=== PATIENT | female | born 1980 | race Caucasian/White ===

== ENCOUNTER 2024-04-01 09:10 | Outpatient (CLI) | payer OTHER, SELFPAY ==
--- NOTE | ~2024-04-01 | MM_ITS ---
EXAMINATION: MM screening markus BI w dena HISTORY: Screening TECHNIQUE: Craniocaudal and mediolateral oblique 3-D tomosynthesis images were obtained and synthetic 2-D images were generated. CAD analysis was submitted and interpreted. COMPARISON: No prior mammogram is available for comparison at this institution. BREAST PARENCHYMAL COMPOSITION: Not dense: There are scattered areas of fibroglandular density. FINDINGS: There is no evidence of suspicious mass, calcification, or architectural distortion to sugg est malignancy in either breast. There has been no suspicious interval change. IMPRESSION: 1. No mammographic evidence of malignancy. 2. Recommend routine screening mammography in one year. BI-RADS Category 1: Negative Reviewed, dictated and finalized at location B.
== END 2024-04-01 09:11 | disposition home or self-care (01) ==
LOC: ANHIMG 09:11
PROVIDERS: PCP Family Medicine; Visit Provider Obstetrics & Gynecology
DX: Z12.31 Encounter for screening mammogram for malignant neoplasm of breast (principal)
CPT/HCPCS: 77063; 77067

== ENCOUNTER 2025-04-04 11:40 | Outpatient (CLI) | payer OTHER, SELFPAY ==
--- NOTE | ~2025-04-04 | XR_ITS ---
EXAMINATION: XR chest 2V, 04/04/2025 11:45 CDT HISTORY: E55.9 - Vitamin D deficiency, unspecified COMPARISON: No comparisons available. Technique: 2 views obtained. Findings: The lungs are clear, no effusion. No pneumothorax. Heart is normal size. Mediastinal and hilar contours are within normal limits. Bony thorax no acute abnormality. Impression: No acute cardiopulmonary abnormality. Reviewed, dictated and finalized at location P. Impression: No acute cardiopulmonary abnormality.
== END 2025-04-04 11:41 | disposition home or self-care (01) ==
LOC: MICIMG 11:42
PROVIDERS: PCP Family Medicine; Visit Provider Nurse Practitioner Family
DX: E55.9 Vitamin D deficiency, unspecified (principal); R05.9 Cough, unspecified; R10.9 Unspecified abdominal pain; R07.89 Other chest pain
CPT/HCPCS: 71046

== ENCOUNTER 2025-04-27 07:16 | Outpatient (CLI) | payer OTHER, SELFPAY ==
--- NOTE | ~2025-04-27 | US_ITS ---
EXAMINATION: US abdomen complete, 04/27/2025 7:24 CMA OR LPN HISTORY: E55.9 - Vitamin D deficiency, unspecified COMPARISON: None Technique: Cruz-scale and color Doppler images were obtained. Findings: LIVER: Mild increased echogenicity of the liver. . GALLBLADDER/BILIARY: Unremarkable.No cholelithiais, wall thickening or pericholecystic fluid. No biliary dilatation. CBD 3 mm. Bosler sign negative. PANCREAS: Unremarkable. SPLEEN: Unremarkable, no splenomegaly. KIDNEYS: Right Kidney: Right kidney 13.3 x 4.8 x 4.1 cm, normal. Left Kidney: Left kidney 12.7 x 5.6 x 5 cm, normal. AORTA: Normal caliber aorta. IVC: Unremarkable. FREE FLUID: None. Impression: 1. Mild hepatic steatosis Reviewed, dictated and finalized at location P. OR LPN Impression: 1. Mild hepatic steatosis
--- OUTSIDE RECORDS SUMMARY | 2025-04-27 07:20 | XMS_ITS | Clinical Summary ---
Author Organization [facility] Care Team Providers Care Box Spring Maker Name Role Phone Provider, None Primary Care Provider Unavailabl e Allergies No known active allergies Medications No known medications Active Problems Problem Noted Date Diagnosed Date Parosmia Social History Tobacco Use Types Packs/Day Years Used Date Smoking Tobacco: Never Assessed Comments Unknown Sex and Gender Information Value Date Recorded Sex Assigned at Not on file Legal Sex Female 8:07 PM CDT Gender Identity Not on file Sexual Orientation Not on file Plan of Treatment Health Maintenance Due Date Last Done Comments Hepatitis C Virus (HCV) Screening 1978 TdaP Immunization 1978 Hepatitis B Immunization (1 of 3 - 19+ 3-dose series) 1997 Pap Smear 10/04/1999 Cervical Cancer Screening (CCS) 2008 HPV/Cotest 2008 Cologuard 10/04/2023 Colonoscopy 10/04/2023 Colorectal Cancer Screening 10/04/2023 Immunochemical Fecal Occult Blood 10/04/2023 Influenza Immunization (#1) 2025 SARS-COV-2 Immunization ( season) 2025 Respiratory Syncytial Virus (RSV) Immunization (Adult) (1 - 1-dose 75+ series) 2053 Human Papillomavirus (HPV) Immunization Aged Out No longer eligible b ased on patient's age to complete this topic Meningococcal Immunization (ACWY) Aged Out No longer eligible based on patient's age to complete this topic Pneumococcal Immunization Combined Aged Out No longer eligible based on patient's age to complete this topic Rotavirus Immunization Aged Out No lo nger eligible based on patient's age to complete this topic Care Teams Box Spring Maker Relationship Specialty Start Date End Date Provider, Rylee BURDEN PCP - General 12/06/20
== END 2025-04-27 07:17 | disposition home or self-care (01) ==
PROVIDERS: PCP Family Medicine; Visit Provider Nurse Practitioner Family
DX: K76.0 Fatty (change of) liver, not elsewhere classified (principal); E55.9 Vitamin D deficiency, unspecified; R05.9 Cough, unspecified; R10.9 Unspecified abdominal pain; R07.89 Other chest pain
CPT/HCPCS: 76700

== ENCOUNTER 2025-04-29 14:40 | Outpatient (CLI) | payer OTHER, SELFPAY ==
--- NOTE | ~2025-04-29 | MM_ITS ---
EXAMINATION: MM screening markus BI w dena HISTORY: Screening TECHNIQUE: Craniocaudal and mediolateral oblique 3-D tomosynthesis images were obtained and synthetic 2-D images were generated. CAD analysis was submitted and interpreted. COMPARISON: 04/01/2024 BREAST PARENCHYMAL COMPOSITION: Not dense: There are scattered areas of fibroglandular density. FINDINGS: There is no evidence of suspicious mass, calcification, or architectural distortion to suggest malignancy in either breast. There has been no suspicious interval change. IMPRESSION: 1. No mammographic evidence of malignancy. 2. Recommend routine screening mammography in one year. BI-RADS Category 1: Negative Reviewed, dictated and finalized at location O. PANNER
--- OUTSIDE RECORDS SUMMARY | 2025-04-29 14:46 | XMS_ITS | Encounter Summary ---
Author Organization [facility] Health Address [address] [place] [address] Care Team Providers Care Solar Manufacturer'S Representative Name Role Phone Unavailable Primary Care Provider Unavailabl e Encounter Details Date Type Department Care Team (Late st Contact Info) Description 02/08/2020 Lab Requisition [facility] Derm[facility] Lab [address] [place] [address] Paco Ding MD [address] [place] [address] Social History Tobacco Use Types Packs/Day Years Used Date Smoking Tobacco: Never Assessed Comments Unknown Sex and Gender Information Value Date Recorded Sex Assigned at Not on file 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 Gender Identity Not on file Sexual Orientation Not on file documented as of this encounter Plan of Treatment Not on file documented as of this encounter Procedures Procedure Name Priority Date/Time Associated Diagnosis Comments DERMATOPATHOLOGY Routine 02/07/2020 12:0 0 AM CDT documented in this encounter Results * DERMATOPATHOLOGY (02/07/2020 12:00 AM CDT) Case Report Dermatopathology Report Case: [id number] Authorizing Provider: Paco Ding MD Collected: 02/07/2020 12:00 AM Ordering Location: [facility] D[facility] Lab Received: 02/08/2020 12:45 PM Pathologist: Lou Walls MD Specimen: Skin, left side abd 0 2:04 PM CDT DERMATOPATHOLOGY LABORATORY Final Diagnosis Specimen A. SKIN, left side abd: INTRADERMAL MELANOCYTIC NEVUS WITH CONGENITAL FEATURES (D22.9) 0 2:04 PM CDT DERMATOPATHOLOGY LABORATORY at 1404 CDT Clinical History R/O dys nevus. 0 2:04 PM CDT DERMATOPATHOLOGY LABORATORY Gross Description Specimen A: Received is one formalin filled container labeled with the patient's name and designated left side abd. The specimen consists of a shave biopsy measuring [id number], bisected. Jar 0. 0 2:04 PM CDT DERMATOPATHOLOGY LABORATORY Microscopic Description Specimen A. SKIN, left side abd: There are nests of cytologically bland melanocytes within the dermis. Some of these melanocytes are concentrated around blood vessels and adnexal structures. 0 2:04 PM CDT DERMATOPATHOLOGY LABORATORY Disclaimer An external and internal positive and negative controls are appropriate for the histochemical, immunohistochemical and immunofluorescence stain(s) in this case (if any), except where stated explicitly. The performance characteristics of the stain(s) cited in this report were developed and its performance characteristic determined by the Dermatopathology Laboratory at [facility], directed by Dr. Ugo Edward. These tests need not be, and therefore are not, approved by the [place] Food and Drug Administration. The tests are used for clinical purposes. Billing Codes Specimen Charges Stain Charges 83399 1 0 2:04 PM CDT DERMATOPATHOLOGY LABORATORY Embedded Images 0 2:04 PM CDT DERMATOPATHOLOGY LABORATORY Pathology/Cytolog y TISSUE SPECIMEN FROM SKIN / Unknown 02/07/2020 02/08/2020 12:45 PM CDT us Paco Ding MD LAB - PATHOLOGY/CYTOLOGY ORD ERABLES Final Result DERMATOPATHOLOGY LABORATORY [facility] - Department of Dermatology Educational Programming Director [address] [address], [facility] [phone] documented in this encounter Visit Diagnoses Not on filedocumented in this encounter
--- OUTSIDE RECORDS SUMMARY | 2025-04-29 14:46 | XMS_ITS | Encounter Summary ---
Author Organization [facility] Health Address [address] [place] [address] Care Team Providers Care Shotblast Operator Name Role Phone Unavailable Primary Care Provider Unavailabl e Encounter Details Date Type Department Care Team (Late st Contact Info) Description 02/21/2022 Lab Requisition [facility] DermPath Lab [address] [place] [address] Paco Ding MD [address] [place] [address] Social History Tobacco Use Types Packs/Day Years Used Date Smoking Tobacco: Never Assessed Comments Unknown Sex and Gender Information Value Date Recorded Sex Assigned at Not on file 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 Gender Identity Not on file Sexual Orientation Not on file documented as of this encounter Plan of Treatment Not on file documented as of this encounter Procedures Procedure Name Priority Date/Time Associated Diagnosis Comments DERMATOPATHOLOGY Routine 02/20/2022 3:33 AM CDT documented in this encounter Results * DERMATOPATHOLOGY (02/20/2022 3:33 AM CDT) Case Report Dermatopathology Report Case: [id number] Authorizing Provider: Paco Ding MD Collected: 02/20/2022 03:33 AM Ordering Location: [facility] DermPath Lab Received: 02/21/2022 02:40 PM Pathologist: Luba Membreno MD Specimen: Skin, below left areola 1:37 PM CDT DERMATOPATHOLOGY LABORATORY Final Diagnosis Specimen A. SKIN, below left areola: LENTIGINOUS MELANOCYTIC NEVUS, COMPOUND TYPE, IRRITATED (D22.5) POST-INFLAMMATORY PIGMENT ALTERATION (L81.9) 2 1:37 PM CDT DERMATOPATHOLOGY LABORATORY at 1337 CDT Clinical History R/O dys nevus 2 1:37 PM CDT DERMATOPATHOLOGY LABORATORY Gross Description Specimen A: Received is one formalin filled container labeled with the patient's name and designated below left areola. The specimen consists of a shave biopsy measuring 7x7x1 mm. Jar 0. 2 1:37 PM CDT DERMATOPATHOLOGY LABORATORY Microscopic Description Specimen A. SKIN, below left areola: This is a compound nevus. There is melanin pigment in the stratum corneum. There is a lentiginous proliferation of melanocytes between nevus nests of cells along the dermal epidermal junction. There is underlying fibroplasia of the papillary dermis. The intradermal component is bland in appearance and matures with depth. (Compound Marlo's Nevus) Sections show abundant melanin within melanophages around the superficial vascular plexus. 2 1:37 PM CDT DERMATOPATHOLOGY LABORATORY Disclaimer An external and internal positive and negative controls are appropriate for the histochemical, immunohistochemical and immunofluorescence stain(s) in this case (if any), except where stated explicitly. The performance characteristics of the stain(s) cited in this report were developed and its performance characteristic determined by the Dermatopathology Laboratory at [facility], directed by Dr. Ugo Edward. These tests need not be, and therefore are not, approved by the [place] Food and Drug Administration. The tests are used for clinical purposes. Billing Codes Specimen Charges Stain Charges 96352 1 2 1:37 PM CDT DERMATOPATHOLOGY LABORATORY Embedded Images 2 1:37 PM CDT DERMATOPATHOLOGY LABORATORY Pathology/Cytolo gy TISSUE SPECIMEN FROM SKIN / Unknown 02/20/2022 3:33 AM CDT 02/21/2022 2:40 PM CDT Paco Ding MD LAB - PATHOLOGY/CYTOLOGY ORD ERABLES Final Result DERMATOPATHOLOGY LABORATORY [facility] - Department of Dermatology [address] [phone] documented in this encounter Visit Diagnoses Not on filedocumented in this encounter
--- OUTSIDE RECORDS SUMMARY | 2025-04-29 14:46 | XMS_ITS | Clinical Summary ---
Author Organization [facility] Care Team Providers Care Trim Machine Operator Name Role Phone Provider, None Primary Care [...] age to complete this topic Care Teams Trim Machine Operator Relationship Specialty Start Date End Date Provider, Rylee BURDEN PCP - General 12/06/20
--- OUTSIDE RECORDS SUMMARY | 2025-04-29 14:46 | XMS_ITS | Clinical Summary ---
Author Organization [facility] [address] [place] [address] Care Team Providers Care Automatic Spooler Operator Name Role Phone Araseli Fermin MD Primary Care Provider [phone] Allergies No known active allergies Medications No known medications Active Problems Problem Noted Date Diagnosed Date Abnormal cervical Papanicolaou smear 02/19/2011 Social History Tobacco Use Types Packs/Day Years Used Date Smoking Tobacco: Former Personal Safety Answer Date Recorded Getting School Help Needed Not on file 09/05 Comments No Sex and Gender Information Value Date Recorded Sex Assigned at Not on file 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 Gender Identity Not on file Sexual Orientation Not on file Last Filed Vital Signs Vital Sign Reading Time Taken Comments Blood Pressure 122/78 01/04/2021 1:05 PM CDT Pulse 84 01/04/2021 1:05 PM CDT Temperature 37.8 C (100 F) 01/04/2021 1:05 PM CDT Respiratory Rate 18 01/04/2021 1:05 PM CDT Oxygen Saturation 97% 01/04/2021 1:05 PM CDT Inhaled Oxygen Concentration - - Weight 88.5 kg (195 lb) 01/04/2021 1:05 PM CDT Height 160 cm (5' 3) 01/04/2021 1:05 PM CDT Body Mass Index 34.54 01/04/2021 1:05 PM CDT Plan of Treatment Not on file Insurance [facility] [employer] Care Teams Automatic Spooler Operator Relationship Specialty Start Date End Date Araseli Fermin MD [facility] [place] [address] PCP - General Family Medicine 01/04/21
--- OUTSIDE RECORDS SUMMARY | 2025-04-29 14:46 | XMS_ITS | Clinical Summary ---
Author Organization [facility] [employer] Address [address] [place] [address] Care Team Providers Care Manager Animal Name Role Phone Unavailable Primary Care Provider Unavailabl e Source Comments [facility], [facility],non-owned Affiliates and Associated Physician Practices is amultiple site organization consisting of ambulatory clinics and hospital sitesin [place], [place], [place] and [place]. This disclosure is being madepursuant to the Care Everywhere program and may not contain all information available regarding this patient. Last updated 18.[facility] [employer] Allergies No known active allergies Medications * Be aware that medications may not be up to date on this document. Alwaysverify current medications with the patient. 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 Gender Identity Not on file Sexual Orientation Not on file Last Filed Vital Signs Vital Sign Reading Time Taken Comments Blood Pressure - - Pulse 88 01/28/2018 9:22 AM CDT Temperature 37 C (98.6 F) 01/28/2018 9:22 AM CDT Respiratory Rate 20 01/28/2018 9:22 AM CDT Oxygen Saturation 98% 01/28/2018 9:22 AM CDT Inhaled Oxygen Concentration - - Weight 78.9 kg (174 lb) 01/28/2018 9:22 AM CDT Height - - Body Mass Index - - Plan of Treatment Health Maintenance Due Date Last Done Comments COLOGUARD (AGES 45-75) - COL ON CA SCREENING 1978 COLON MONITORING 1978 COLONOSCOPY - COLON CA SCREENING 1978 CT COLONOGRAPHY - COLON CA SCREENING 1978 Colorectal Cancer Screening 1978 FIT - COLON CA SCREENING 1978 FLEX SIG - COLON CA SCREENING 1978 LIPID TESTING 1978 MAMMOGRAM 1978 HIV SCREENING 1993 HEPATITIS C SCREENING 09/28/1996 DTAP/TDAP/TD VACCINES (1 - Tdap) 1997 HEPATITIS B VACCINE (1 of 3 - 19+ 3-dose series) 1997 DEPRESSION SCREENING 06/23/2024 COVID-19 VACCINE (1 - 2023-2 5 season) 2025 INFLUENZA VACCINE (#1) 2025 ZOSTER VACCINE (1 of 2) 2028 HIB VACCINE Aged Out No longer eligi ble based on patient's age to complete this topic HPV VACCINE Aged Out No longer eligi ble based on patient's age to complete this topic MENINGOCOCCAL (Group B) VACC INE SHARED DECISION-MAKING Aged Out No longer eligibl e based on patient's age to complete this topic MENINGOCOCCAL GROUPS A/C/Y/W VACCINE Aged Out No longer eligible b ased on patient's age to complete this topic PNEUMOCOCCAL VACCINE Aged Out No long er eligible based on patient's age to complete this topic Insurance ([place]) [id number] [facility]
--- OUTSIDE RECORDS SUMMARY | 2025-04-29 14:47 | XMS_ITS | Data Portability ---
Author Organization [place] - [facility] [employer], Main Office Address [address] [place] [address] Care Team Providers Care Intake Counselor Name Role Phone ARASELI ÁLVAREZ Primary Care Provider Assessment No assessment recorded. Plan of Treatment Reminders Order Date Submit Date Provider Last Modified By Organization Details Last Modified Time Details Appointments None recorded . Lab lipid panel, serum 023 11/01/19 23 [facility], [address] [facility], [place], [address], 3 08:18:27 CMP, serum or plasma 023 11/01/19 23 [facility], [address] [facility], [place], [address], 3 08:18:26 Referral None recorded . Procedures None recorded . Surgeries None recorded . Imaging None recorded . Medication Orders None recorded . Patient TargetsNo targets recorded. Patient InstructionsNo instructions recorded. Reason for Referral None Reported. Results Created Date Observation Date Name Description Value Unit Range Abnormal Flag Note LastModifiedBy Organization Detail LastModifiedTime 11/02/19 23 11/02/2022 COMP. METAB OLIC PANEL (14) glucose 94 mg/dL 70-99 Not Available [facility] ([facility]) [address] [place], [address], 11/02/2022 08:18:26 11/02/19 23 11/02/2022 COMP. METAB OLIC PANEL (14) BUN 9 mg/dL 6-24 Not Available [facility] ([facility]) [address] [place], [address], 11/02/2022 08:18:26 11/02/19 23 11/02/2022 COMP. METAB OLIC PANEL (14) creatinine 0.61 mg/dL 0.57-1 .00 Not Available [facility] ([facility]) [address] [facility], [place], [address], 11/02/2022 08:18:26 11/02/19 23 11/02/2022 COMP. METAB OLIC PANEL (14) eGFR 113 mL/mi n/1.7 3 >59 Not Available [facility] ([facility]) [address] [facility] [place], [address], 11/02/2022 08:18:26 11/02/19 23 11/02/2022 COMP. METAB OLIC PANEL (14) BUN/creatini ne ratio 15 9-23 Not Available [facility] ([facility]) [address] [facility], [place], [address], 11/02/2022 08:18:26 11/02/19 23 11/02/2022 COMP. METAB OLIC PANEL (14) sodium 139 mmol/ L 134-14 4 Not Available [facility] ([facility]) [address] [facility], [place], [address], 11/02/2022 08:18:26 11/02/19 23 11/02/2022 COMP. METAB OLIC PANEL (14) potassium 5.2 mmol/ L 3.5-5. 2 Not Available [facility] ([facility]) [address] [facility], [place], [address], 11/02/2022 08:18:26 11/02/19 23 11/02/2022 COMP. METAB OLIC PANEL (14) chloride 103 mmol/ L 96-106 Not Available [facility] ([facility]) [address] [facility], [place], [address], 11/02/2022 08:18:26 11/02/19 23 11/02/2022 COMP. METAB OLIC PANEL (14) carbon dioxide, total 23 mmol/ L 20-29 Not Available [facility] ([facility]) [address] [place], [address], 11/02/2022 08:18:26 11/02/19 23 11/02/2022 COMP. METAB OLIC PANEL (14) calcium 8.7 mg/dL 8.7-10 .2 Not Available [facility] ([facility]) [address] [place], [address], 11/02/2022 08:18:26 11/02/19 23 11/02/2022 COMP. METAB OLIC PANEL (14) protein, total 6.8 g/dL 6.0-8. 5 Not Available [facility] ([facility]) [address] [place], [address], 11/02/2022 08:18:26 11/02/19 23 11/02/2022 COMP. METAB OLIC PANEL (14) albumin 4.3 g/dL 3.8-4. 8 Not Available [facility] ([facility]) [address] [place], [address], 11/02/2022 08:18:26 11/02/19 23 11/02/2022 COMP. METAB OLIC PANEL (14) globulin, total 2.5 g/dL 1.5-4. 5 Not Available [facility] ([facility]) [address] [place], [address], 11/02/2022 08:18:26 11/02/19 23 11/02/2022 COMP. METAB OLIC PANEL (14) A/G ratio 1.7 1.2-2. 2 Not Available [facility] ([facility]) [address] [place], [address], 11/02/2022 08:18:26 11/02/19 23 11/02/2022 COMP. METAB OLIC PANEL (14) bilirubin, total 0.2 mg/dL 0.0-1. 2 Not Available [facility] ([facility]) [address] [facility] [place] [place], [address], 11/02/2022 08:18:26 11/02/19 23 11/02/2022 COMP. METAB OLIC PANEL (14) alkaline phosphatase 105 IU/L 44-121 Not Available [facility] ([facility]) [address] [facility] [place] [place], [address], 11/02/2022 08:18:26 11/02/19 23 11/02/2022 COMP. METAB OLIC PANEL (14) AST (SGOT) 13 IU/L 0-40 Not Available [facility] ([facility]) [address] [place], [address], 11/02/2022 08:18:26 11/02/19 23 11/02/2022 COMP. METAB OLIC PANEL (14) ALT (SGPT) 10 IU/L 0-32 Not Available [facility] ([facility]) [address] [place], [address], 11/02/2022 08:18:26 11/02/19 23 11/02/2022 LIPID PANEL cholesterol, total 146 mg/dL 100-19 9 Not Available [facility] ([facility]) [address] [place], [address], 11/02/2022 08:18:27 11/02/19 23 11/02/2022 LIPID PANEL triglyceride s 56 mg/dL 0-149 Not Available [facility] ([facility]) [address] [place], [address], 11/02/2022 08:18:27 11/02/19 23 11/02/2022 LIPID PANEL HDL cholesterol 47 mg/dL >39 Not Available [facility] ([facility]) [address] [place], [address], 11/02/2022 08:18:27 11/02/19 23 11/02/2022 LIPID PANEL VLDL cholesterol rosey 12 mg/dL 5-40 Not Available [facility] ([facility]) [address] [place], [address], 11/02/2022 08:18:27 11/02/19 23 11/02/2022 LIPID PANEL LDL chol calc ([facility]) 87 mg/dL 0-99 Not Available [facility] ([facility]) [address] [facility], [place], [address], 11/02/2022 08:18:27 11/02/19 23 11/02/2022 LIPID PANEL comment: METAL [employer] Not Available [facility] ([facility]) [address] [facility], [place], [address], 11/02/2022 08:18:27 02/21/20 22 MAMMO , scree cameron, digit al, bilat eral [facility] [address] [address] Patien t Name: CIARA NORTH Access ion #: [id number] Sex: F : 1980 5 Locati on: RA2 Attend ing Physic elizabeth: ELKHAT IB, RUNDA Orderi ng Physic elizabeth: ELKHAT IB, RUNDA Exam Date: 022 2:56 PM Exam Name: MG DIGITA L MARIEL BILAT SCREEN Admitt ing Diagno sis(es ): RADIOL OGY REPORT - FINAL EXAM: MG DIGITA L MARIEL BILAT SCREEN HISTOR Y: screen ing mammog bisi 41-yea r-old female with no curren t breast compla ints. COMPAR RAMOS: 2020, 2019, 2019 TECHNI QUE: Bilate ral CC and MLO views of the breast s were perfor med. Digita l Mammog kasie images were obtain ed. CAD (compu ter assist ed detect ion) was utiliz ed. FINDIN GS: There are scatte red areas of fibrog landul ar densit y. No masses , asymme tries, suspic ious calcif icatio ns, or rajesh ectura l distor tion are seen. Page 1 of 2 [facility] Justine wong Name: CIARA NORTH Access ion #: [id number] Sex: F : 1980 5 Exam Date: 2:56 PM Exam Name: MG PRICILLA L MARIEL BILAT SCREEN Admitt ing Diagno sis(es ): IMPRES NOEMI: BIRADS 1: Assess ment comple te. Negati ve. Recomm end annual screen ing mammog kasie. Accord ing to the [employer], yearly mammog kacey are recomm ended starti ng at age 40 and contin uing as long as the woman is in good health . Clinic al Breast Exam should be part of the period ic health exam-a bout every 3 years for women in their 20s and 30s and every year for women 40 and over. Breast self-e xam is an option for women in their 20s. Any breast change noted on the breast self-e xam she would be report ed prompt ly to the [facility]. A negati ve mammog kasie report should not discou rage follow -up or biopsy of a clinic ally signif icant findin g and/or abnorm ality. Dense breast tissue may obscur e small neopla sms. This justine wong has been entere d into a mammog kasie remind er system with a target date for her next mammog ibsi. Create d and electr onical ly signed by: Hugo bustos MD Signed Date: 3:28 PM (CT) Dictat ed by: Hugo bustos MD DD: 3:28 PM (CT) DT: 3:28 PM (CT) Page 2 of 2 [id number] [facility] [address] [place], [address], 08/21/2022 17:49:24 02/13/20 23 02/05/2023 home sleep study No observ ation record ed. ZACHARY [facility] [address] [place], [address], 02/24/2023 09:38:42 02/14/20 23 02/05/2023 home sleep study No observ ation record ed. [email or web address] [facility] [address] [place], [address], 02/13/2023 09:35:28 04/01/20 23 MAMMO , scree cameron, digit al, bilat eral [facility] [address] [place], [place] [id number] [phone] Patien t Name: CIARA NORTH ion #: [id number] Sex: F : 1980 2 Dictat ed By: Fadumo Guzman Attend ing Physic elizabeth: ELKHAT IB, RUNDA Orderi ng Physic elizabeth: ELKHAT IB, RUNDA Exam Date: 2022 15:24 PM Exam Name: MG DIGITA L MARIEL BILAT SCREEN Admitt ing Diagno sis(es ): CLINIC AL HISTOR Y: Screen ing COMPAR RAMOS STUDY: 022 TECHNI QUE: Using a full field digita l 2D mammog kasie unit CC and MLO views of both breast s are perfor med. FINDIN GS: BREAST COMPOS ITION: There are scatte red areas of fibrog landul ar densit y in the bilate ral breast s. No suspic ious masses , rajesh ectura l distor tion, asymme tries or suspic ious calcif icatio ns in both breast s. IMPRES NOEMI: No eviden ce of malign joce. Recomm end annual mammog bisi. BIRADS : 1 - Negati ve Electr onical ly Signed by: Fadumo Guzman at 2022 07:43: 10 AM Page 1 [email or web address] [facility] [address] [place], [address], 04/01/2023 15:43:33 04/01/20 23 03/31/2023 MAMMO , zamzame cameron, bilat eral No observ ation record ed. [email or web address] [facility] [address] [place], [address], 04/01/2023 14:46:43 Result Notes Documentation Provider Name and Address Organization Details Recorded Time Mammo, Screening, Digital, Bilateral : [facility] [address] [place] [address] Patient Name: CIARA DOWNS Sex: F : 1980 Location: [facility] Attending Physician: ARASELI ÁLVAREZ Ordering Physician: ARASELI ÁLVAREZ Exam Date: 02/20/2022 2:56 PM Exam Name: MG DIGITAL MARIEL BILAT SCREEN Admitting Diagnosis(es): RADIOLOGY REPORT - FINAL EXAM: MG DIGITAL MARIEL BILAT SCREEN HISTORY: screening mammogram 41-year-old female with no current breast complaints. COMPARISON: 12/19/2020, 12/28/2019, 12/16/2019 TECHNIQUE: Bilateral CC and MLO views of the breasts were performed. Digital Mammography images were obtained. CAD (computer assisted detection) was utilized. FINDINGS: There are scattered areas of fibroglandular density. No masses, asymmetries, suspicious calcifications, or architectural distortion are seen. Page 1 of 2 [facility] Patient Name: CIARA DOWNS Sex: F : 1980 Exam Date: 02/20/2022 2:56 PM Exam Name: MG DIGITAL MARIEL BILAT SCREEN Admitting Diagnosis(es): IMPRESSION: BIRADS 1: Assessment complete. Negative. Recommend annual screening mammography. According to the [employer], yearly mammograms are recommended starting at age 40 and continuing as long as the woman is in good health. Clinical Breast Exam should be part of the periodic health exam-about every 3 years for women in their 20s and 30s and every year for women 40 and over. Breast self-exam is an option for women in their 20s. Any breast change noted on the breast self-exam she would be reported promptly to the patient's health care provider. A negative mammography report should not discourage follow-up or biopsy of a clinically significant finding and/or abnormality. Dense breast tissue may obscure small neoplasms. This patient has been entered into a mammography reminder system with a target date for her next mammogram. Created and electronically signed by: Hugo Nelson MD Signed Date: 02/20/2022 3:28 PM (CT) Dictated by: Hugo Nelson MD (CT) (CT) Page 2 of 2 Not Available [facility] 08/21/2022 17:49:24 Mammo, Screening, Digital, Bilateral : [address] [address] Patient Name: CIARA DOWNS Sex: F : 1980 Dictated By: Fadumo Guzman Attending Physician: ARASELI ÁLVAREZ Ordering Physician: ARASELI ÁLVAREZ Exam Date: 03/31/2023 15:24 PM Exam Name: MG DIGITAL MARIEL BILAT SCREEN Admitting Diagnosis(es): CLINICAL HISTORY: Screening COMPARISON STUDY: 02/20/2022 TECHNIQUE: Using a full field digital 2D mammography unit CC and MLO views of both breasts are performed. FINDINGS: BREAST COMPOSITION: There are scattered areas of fibroglandular density in the bilateral breasts. No suspicious masses, architectural distortion, asymmetries or suspicious calcifications in both breasts. IMPRESSION: No evidence of malignancy. Recommend annual mammogram. BIRADS: 1 - Negative Page 1 LORI Carmona, [place] - [place] [employer] [facility] 04/01/2023 15:43:33 Problems Name Problem SNOMED Code Status Onset Date Resolution Date Notes Provider Name and Address Organization Details Recorded Time Actinic keratosis Active Not Available [facility] 3 05:43:17 Melanocytic nevus 651573311 Active Not Available [facility] 3 05:43:17 Obesity 279358592 Active Not Available [facility] 3 05:43:17 Obstructive sleep apnea syndrome 64475984 Active 2022 Not Available [facility] 3 05:43:17 Sleep apnea 39126317 Active 2022 Not Available [facility] 3 05:43:17 Notes:Araseli Fermin MD Medical History: Actinic keratosis Melanocytic nevus Obesity with mod OSAHS, AHI = 20, 02/05/23 Problem Notes None recorded. Medical Equipment None Reported. Allergies No known drug allergies Medications Name Sig Start Date Stop Date Status Note LastModified by Organization Details LastModified Time metronidazole 0.75 % (37.5 mg/5 gram) vaginal gel 09/24 completed Not Available Not Available Not Available prednisone 20 mg tablet 07/14 completed Not Available Not Available Not Available clonazepam 0.5 mg tablet Take 1 tablet twice a day by oral route as needed for 30 days. active PRN Not Available Not Available No t Available mupirocin 2 % topical ointment 07/14 completed Not Available Not Available Not Available Vitals Date Recorded Body mass index (BMI) Body height Oxygen saturation Oxygen saturation in Arterial blood by Pulse oximetry Heart rate Body temperature Body weight Systolic And Diastolic Provider Name and Address Organization Details Last Updated DateTime 2 35.6 kg/m2 160.02 cm 98 % 98 % 90 /min 96.8 [degF] 55442.0 7 g 118/76 mm[Hg] Not Available [facility] 3 17:46:34 Date Recorded Body weight Body mass index (BMI) Body height Body temperature Heart rate Oxygen saturation Oxygen saturation in Arterial blood by Pulse oximetry Systolic And Diastolic Provider Name and Address Organization Details Last Updated DateTime 3 50125.5 8 g 37.6 kg/m2 160.02 cm 98.2 [degF] 94 /min 98 % 98 % 122/74 mm[Hg] CIERA Rubio [place] [employer] [facility] 3 16:39:23 Date Recorded Body height Body mass index (BMI) Body weight Heart rate Oxygen saturation Oxygen saturation in Arterial blood by Pulse oximetry Systolic And Diastolic Provider Name and Address Organization Details Last Updated DateTime 3 160.02 cm 36.7 kg/m2 82879.6 2 g 77 /min 98 % 98 % 108/52 mm[Hg] Mi Blum [facility] [employer] [facility] 3 12:44:19 Date Recorded Body height Body mass index (BMI) Body weight Heart rate Oxygen saturation Oxygen saturation in Arterial blood by Pulse oximetry Systolic And Diastolic Provider Name and Address Organization Details Last Updated DateTime 3 160.02 cm 36.7 kg/m2 09196.6 2 g 90 /min 98 % 98 % 120/70 mm[Hg] Sheri Guaman MA [facility] [employer] [facility] 3 16:19:47 Social History None recorded. Functional Status None recorded. Mental Status None recorded. Family History Nothing Reported. Medical History No medical history recorded. Gynecological HistoryNo gynecological history recorded. Obstetrics History GPAL:G 0 P 0 0 0 0 Immunizations Vaccine Type Date Status Note Provider Nam e and Address Organization Details Recorded Time Tdap 12/16/2019 completed Not Available [facility] 04/02/2023 05:43:17 Past Encounters Encounter ID Performer Location Encounter Start Date Encounter Closed Date Diagnosis/Indication Diagnosis SNOMED-CT Code Diagnosis ICD10 Code Diagnosis IMO Codes Diagnosis Note [id number] Araseli Fermin MD [facility] era [facility] [place] [address] 08/07/2021 00:00:00 08/07/2021 22:52:32 [id number] Araseli Fermin MD [facility] era [facility] [place] [address] 10/31/2022 16:24:42 10/31/2022 17:20:21 Adult health examination 937296451 Z00.00 Hyperlipid emia screening 769773272 Z13.427 [id number] Jazmyn Rebolledo [facility] [place] [address] [place] [address] 03/17/2023 12:37:49 03/17/2023 14:15:09 Obstructive sleep apnea syndrome 81105574 G47.33 Home sleep study 01/2023 with AHI 20.Discuss ed treatment optionsShe agrees to PAP therapyOrd ered todayOSA is well correctedE ncouraged 100% compliance with all sleepFollo w with PCM for labsAdvise d good sleep habits and patterns:- Set a goal for at least 7 to 8 hours of sleep time per day.-Use the bed mainly for sleep and to go to bed only when tired. If unable to fall asleep after 30 minutes, patient should get out of bed but should not engage in any activity that requires sustained mental alertness. -Maintain a regular bedtime and wake-up time even on weekends or days off of work.-Avoi d excessive naps during the daytime. If a nap is necessary, limit it to no more than 30 minutes.-M inimize environmen sawyer noise, bright lights, and extremes in bedroom temperatur e.-Avoid alcohol, caffeinate d beverages, and nicotine products for at least 6 hours prior to bedtime.-A void strenuous exercise and large meals for at least 4 hours prior to bedtime.RT C for compliance visit as required by insurance [id number] Jazmyn Rebolledo, 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 If unable to fall asleep after 30 minutes, patient should get out of bed but should not engage in any activity that requires sustained mental alertness. -Maintain a regular bedtime and wake-up time even on weekends or days off of work.-Avoi d excessive naps during the daytime. If a nap is necessary, limit it to no more than 30 minutes.-M inimize environmen sawyer noise, bright lights, and extremes in bedroom temperatur e.-Avoid alcohol, caffeinate d beverages, and nicotine products for at least 6 hours prior to bedtime.-A void strenuous exercise and large meals for at least 4 hours prior to bedtime.Sh e should follow up in 3-6 months Health Concerns Section Related Observation LastModified by Organization Detai ls LastModified Time None Recorded Concern Status LastModified by Organization Details LastModified Time None Recorded Advance Directives Directive None Recorded Payers Insurance Date Sequence Insurance Name Policy Number Policy Enamorado Covered Member ID Neamorado Member ID Guarantor Name 10/30/2022 1 [facility] [id number] Ciara Ellisonjannie [id number] Ciara Terrajannie 05/12/2023 1 [employer] ([facility]) [id number] Ciara Ellisoncyndydanni [id number] Ciara Ellisonjannie Notes Date Note Type Note Provider Name and Address Organization Details Recorded Time 10/31/2022 text/html Here for a wellness visit. Had a pain on right upper quadrant. It stopped hurting on Friday. US at work. showed no Gall stones.Needs BW. UTD with mammogram. Next year will need colon cancer screening.Pt has sleep issues and needs possible sleep study. Araseli Fermin MD [address] [facility], [place] [address], [place], [address], [facility] 03/20/2023 18:25:26 03/17/2023 text/html Ms Downs presents today to establish care for further evaluation of LIS.Reports she is mildly fatigued, but her 's reports of snoring.She denies nocturia and restless sleep.No morning headaches or dry mouth.Reviewed medical and surgical historyReviewed family and social historyReviewed PCM notes and testingReviewed medications and allergies JENNIFFER Butler [address], [facility] [address], [place], [address], [facility] 03/17/2023 21:13:02 05/09/2023 text/html Ms Downs presents today to follow up on LIS and new PAP machine.She is using this nightly but does not notice much improvement in symptoms, as she did not feel particularly fatigued prior to testingShe denies nocturia and restless sleep.No morning headaches or dry mouth.PAP treatment has corrected her snoring.She has nasal cushion and does not wake due to mask leak or discomfort Jazmyn Rebolledo, [facility] [address] [facility], [facility] [address], [place], [address], [facility] 05/09/2023 16:43:07 OBGyn Episode No OBEpisode recorded.
== END 2025-04-29 14:41 | disposition home or self-care (01) ==
LOC: ANHFOHIMG 14:45
PROVIDERS: PCP Family Medicine; Visit Provider Obstetrics & Gynecology
DX: Z12.31 Encounter for screening mammogram for malignant neoplasm of breast (principal)
CPT/HCPCS: 77063; 77067